=== PATIENT | male | born 1995 | race Caucasian/White ===

== ENCOUNTER 2018-01-17 15:02 | Emergency (ER) | payer BC ==
--- NOTE | 2018-01-17 15:21 | ER Report ---
History and Physical Time Seen By MD: 15:21 Hx. of Stated Complaint: PT REPORTS L ANKLE INJURY AFTER HORSE ROLLED OVER ANKLE HPI/ROS CHIEF COMPLAINT: Left ankle injury HISTORY OF PRESENT ILLNESS: 22-year-old male patient presents to emergency room with complaint of left ankle pain. Patient states he was riding a horse when the horse slipped and fell. He states he cut his left foot caught underneath horse. States that since then he's been having significant amounts of pain. He states that happened approximate 45 minutes ago. He denies any numbness tingling to the foot. He states pain seems to more on the lateral aspect. Patient denies any significant past medical history. He states he is not taking any medication for this. REVIEW OF SYSTEMS: Respiratory: No cough, no dyspnea. Cardiovascular: No chest pain, no palpitations. Gastrointestinal: No vomiting, no abdominal pain. Musculoskeletal: As noted above Allergies: Coded Allergies: No Known Drug Allergies (Unverified , 01/17/18) Home Meds Active Scripts Hydrocodone Bit/Acetaminophen (HYDROCODON-ACETAMINOPHEN 5-325) 1 Each Tablet, 1 EACH PO Q4-6H Y for PAIN, #12 TAB Prov:ERIBERTO BALL 01/17/18 Past Medical/Surgical History Patient has a past medical history of concussions, fractures. Patient denies any surgical history. Reviewed Nurses Notes: Yes Constitutional Vital Sign - Last 24 Hours 01/17/18 01/17/18 01/17/18 01/17/18 15:10 16:02 16:15 16:22 Temp 97.8 Pulse 110 79 104 Resp 16 16 B/P (MAP) 140/98 124/77 (93) Pulse Ox 96 93 O2 Delivery Room Air 01/17/18 01/17/18 01/17/18 01/17/18 16:22 16:25 16:30 16:35 Pulse 103 Resp 13 B/P (MAP) 127/64 (85) 114/52 (72) 122/75 (91) Pulse Ox 100 01/17/18 01/17/18 01/17/18 01/17/18 16:40 16:42 16:45 16:50 Pulse 96 Resp 16 B/P (MAP) 119/75 (90) 122/57 (78) 109/85 (93) Pulse Ox 98 01/17/18 01/17/18 01/17/1818 16:55 17:00 17:05 17:10 Pulse 92 Resp 16 B/P (MAP) 133/63 (86) 122/80 (94) 129/80 (96) 127/84 (98) Pulse Ox 98 01/17/18 01/17/18 01/17/18 01/17/18 17:15 17:20 17:25 17:30 Pulse 93 92 91 88 Resp 28 19 13 B/P (MAP) 100/76 (84) 109/52 (71) 130/81 (97) 130/78 (95) Pulse Ox 96 95 96 01/17/18 01/17/18 01/17/18 01/17/18 17:35 17:40 17:45 17:50 Pulse 91 92 94 96 Resp 21 14 11 17 B/P (MAP) 127/68 (87) 126/81 (96) 114/78 (90) 97/74 (82) Pulse Ox 94 96 98 95 01/17/18 01/17/18 17:55 18:00 Pulse 98 101 Resp 31 18 B/P (MAP) 109/77 (88) 134/103 (113) Pulse Ox 95 96 Intake and Output 01/17/18 01/17/18 01/18/18 15:00 23:00 07:00 Intake Total 1000 ml Balance 1000 ml Physical Exam General Appearance: The patient is alert, has no immediate need for airway protection and no current signs of toxicity. Respiratory: Chest is non tender, lungs are clear to auscultation. Cardiac: regular rate and rhythm Gastrointestinal: Abdomen is soft and non tender, no masses, bowel sounds normal. Musculoskeletal: Neck: Neck is supple and non tender. Extremities have full range of motion and are non tender. Patient has obvious deformity of the left ankle, significant amounts of swelling to the medial aspect. Patient does have tenderness to the lateral aspect. Skin: No rashes or lesions. DIFFERENTIAL DIAGNOSIS: After history and physical exam differential diagnosis was considered for fracture, sprain, dislocation. Medical Decision Making EKG/Imaging Imaging EXAMINATION: Left ankle 2 views HISTORY: Post reduction. COMPARISON: Prior study of earlier today. FINDINGS: Partially improved alignment at the left ankle following closed reduction. There is persistent lateral subluxation of the talus relative to the distal tibia, partially improved, with stable mild posterior subluxation of the talus on the lateral view. Fractures again noted of the lateral and posterior malleoli. No other new osseous findings. Surrounding soft tissue swelling, with new overlying splint material. IMPRESSION: 1. Partially improved alignment at the left ankle following closed reduction. There is persistent mild lateral and posterior displacement of the talus relative to the distal tibia. 2. Fractures of the lateral malleolus and posterior malleolus again noted. No other new osseous findings. Report Dictated By: Michael Moyer MD at 01/17/2018 5:10 PM Report E-Signed By: Michael Moyer MD at 01/17/2018 5:14 PM EXAMINATION: Left ankle radiographs 3 views Left tibia and fibula radiographs 2 views HISTORY: Fall with pain. COMPARISON: None. FINDINGS: AP, crosstable lateral and oblique views of the left ankle, and AP and crosstable lateral views of the left tibia and fibula are obtained. Bones: There is an acute oblique fracture of the distal fibula above the level of the tibiotalar joint. There is an irregular appearance of the posterior malleolus. Joint spaces: Abnormal widening of the medial ankle gutter by over 1 cm. Asymmetric narrowing of the bilateral margin the tibiotalar joint. Hardware: None. Alignment: There is 5 mm lateral displacement of the fibular fracture and mild impaction. Soft tissues: Soft tissue swelling of the distal muro and ankle. There is an ankle joint effusion. IMPRESSION: 1. Acute, oblique fracture of the left distal fibula above the level of the tibiotalar joint with 5 mm lateral displacement. 2. Probable acute fracture of the left posterior malleolus. 3. Ligamentous injury with abnormal widening of the left medial ankle gutter. Report Dictated By: Stephani Restrepo MD at 01/17/2018 4:17 PM Report E-Signed By: Stephani Restrepo MD at 01/17/2018 4:22 PM ED Course/Re-evaluation ED Course Patient was admitted to examine, history and physical obtained. Differential diagnoses were considered. Patient has obvious deformity of the left ankle on exam. It does appear to be unstable with movement. Patient is able to move his toes without any difficulties. X-rays done of the left ankle as well as the left tib-fib. Patient has obvious fracture of the distal fibula, appears to have a posterior malleolus fracture. An IV was started, a procedural sedation was done as described below. The ankle was reduced, splinted and re-x-ray. The repeat x-ray shows partially and proved alignment. I discussed the case with Dr. padilla, he did speak with the patient directly by phone. They arranged to have surgery tomorrow. I did discuss the partial improvement in alignment with Dr. Reese, he states that within doing surgery tomorrow to be fine to go ahead and leave it. I discussed this with the patient who verbalized understanding and agreement. Patient will be discharged home at this time, he'll be given a prescription for narcotic pain medication and he is to follow-up as directed by Dr. Reese. Patient verbalized understanding and agreement. Procedure: Procedural sedation. A pre-sedation evaluation was completed on the patient at what 1600. Patient is an appropriate candidate for procedural sedation. The risks of the sedation were discussed with the patient. A time out was completed. The patient was reevaluated immediately prior to initiation of sedation. The patient was sedated with 180 mg of propofol. The patient was monitored with continuous pulse oximetry and restorative art embalmer. There were no complications and no significant hypoxemia. I remained at the bedside for the sedation. The total time I spent in the procedural sedation was 15 minutes. Post sedation evaluation: Patient was alert and cooperative, hemodynamically stable with appropriate respiratory status, temperature and pain control without ongoing nausea and vomiting. Procedure: Splint placement. A posterior and stirrup splint was applied. After application of the splint I re-examined the patient. The splint was adequately immobilizing the joint and distal to the splint the patient's circulation and sensation was intact. Splint placement was done by myself Decision to Disposition Date: Jan 17, 2018 Decision to Disposition Time: 17:50 Depart Departure Latest Vital Signs Vital Signs Date Time Temp Pulse Resp B/P (MAP) Pulse Ox O2 Delivery O2 Flow Rate FiO2 01/17/18 18:00 101 18 134/103 (113) 96 01/17/18 15:10 97.8 Room Air Impression: Primary Impression: Bimalleolar ankle fracture Condition: Improved Disposition: HOME OR SELF-CARE New Scripts Hydrocodone Bit/Acetaminophen (HYDROCODON-ACETAMINOPHEN 5-325) 1 Each Tablet 1 EACH PO Q4-6H Y for PAIN, #12 TAB Prov: ERIBERTO BALL 01/17/18 Patient Instructions: Ankle Fracture (ED) Additional Instructions: Limit activity by pain. Ice the ankle through the splint; 2-3 times a day for 20-30 minutes. If the splint is feeling too tight you may loosen the joy wrap and rewrap it. Follow up with [facility], as directed. Keep the splint dry, wrap it with a bag and tape to keep the water out. Return to the ER with uncontrollable pain or numbness to the foot. You may take Ibuprofen as needed for pain in addition to the pain medication. Don't take any additional Tylenol while on the pain medication. Problem Qualifiers Primary Impression: Bimalleolar ankle fracture Encounter type: initial encounter Fracture type: closed Laterality: left Qualified Codes: S82.842A - Displaced bimalleolar fracture of left lower leg, initial encounter for closed fracture ERIBERTO BALL Jan 17, 2018 15:21
[2018-01-17] MEDS ORDERED: MORPHINE 4 MG/ML SDV IVP ONE (15:30)
[2018-01-17] MEDS ORDERED: NS(*) 0.9% 1000 ML BAG 1,000 ML IV ONE (15:30)
[2018-01-17] MEDS ORDERED: PROPOFOL EMUL 10MG/ML 20 ML VL IV ONE (16:00)
--- NOTE | 2018-01-17 16:27 | RADIOLOGY IMAGING REPORT ---
FACILITY: [facility] [place] PATIENT NAME: Adam Page : 1995 MR: [id number] V: [id number] EXAM DATE: ORDERING PHYSICIAN: ERIBERTO BALL TECHNOLOGIST: [place] [facility] [place] Adam Page : 1995 Visit/Account:[id number] Date of Sevice: 01/17/2018 EXAMINATION: Left ankle radiographs 3 views Left tibia and fibula radiographs 2 views HISTORY: Fall with pain. COMPARISON: None. FINDINGS: AP, crosstable lateral and oblique views of the left ankle, and AP and crosstable lateral v iews of the left tibia and fibula are obtained. Bones: There is an acute oblique fracture of the distal fibula above the level of the tibiotalar sydni nt. There is an irregular appearance of the posterior malleolus. Joint spaces: Abnormal widening of the medial ankle gutter by over 1 cm. Asymmetric narrowing of the bilateral margin the tibiotalar joint. Hardware: None. Alignment: There is 5 mm lateral displacement of the fibular fracture and mild impaction. Soft tissues: Soft tissue swelling of the distal muro and ankle. There is an ankle joint effusion. IMPRESSION: 1. Acute, oblique fracture of the left distal fibula above the level of the tibiotalar joint with 5 m m lateral displacement. 2. Probable acute fracture of the left posterior malleolus. 3. Ligamentous injury with abnormal widening of the left medial ankle gutter. Report Dictated By: Stephani Restrepo MD at 01/17/2018 4:17 PM Report E-Signed By: Stephani Restrepo MD at 01/17/2018 4:22 PM WSN:[id number]
--- NOTE | 2018-01-17 16:27 | RADIOLOGY IMAGING REPORT ---
FACILITY: [facility] PATIENT NAME: Adam Page : 1995 MR: [id number] V: [id number] EXAM DATE: ORDERING PHYSICIAN: ERIBERTO BALL TECHNOLOGIST: Location: [facility] Patient: Adam Page : 1995 Visit/Account:[id number] Date of Sevice: 01/17/2018 EXAMINATION: Left ankle radiographs 3 views Left tibia and fibula radiographs 2 views HISTORY: Fall with pain. COMPARISON: None. FINDINGS: AP, crosstable lateral and oblique views of the left ankle, and AP and crosstable lateral v iews of the left tibia and fibula are obtained. Bones: There is an acute oblique fracture of the distal fibula above the level of the tibiotalar sydni nt. There is an irregular appearance of the posterior malleolus. Joint spaces: Abnormal widening of the medial ankle gutter by over 1 cm. Asymmetric narrowing of the bilateral margin the tibiotalar joint. Hardware: None. Alignment: There is 5 mm lateral displacement of the fibular fracture and mild impaction. Soft tissues: Soft tissue swelling of the distal muro and ankle. There is an ankle joint effusion. IMPRESSION: 1. Acute, oblique fracture of the left distal fibula above the level of the tibiotalar joint with 5 m m lateral displacement. 2. Probable acute fracture of the left posterior malleolus. 3. Ligamentous injury with abnormal widening of the left medial ankle gutter. Report Dictated By: Stephani Restrepo MD at 01/17/2018 4:17 PM Report E-Signed By: Stephani Restrepo MD at 01/17/2018 4:22 PM WSN:[id number]
--- NOTE | 2018-01-17 17:17 | RADIOLOGY IMAGING REPORT ---
FACILITY: [facility] PATIENT NAME: Adam Page : 1995 MR: [id number] V: [id number] EXAM DATE: ORDERING PHYSICIAN: ERIBERTO BALL TECHNOLOGIST: Location: [facility] Patient: Adam Page : 1995 Visit/Account:[id number] Date of Sevice: 01/17/2018 EXAMINATION: Left ankle 2 views HISTORY: Post reduction. COMPARISON: Prior study of earlier today. FINDINGS: Partially improved alignment at the left ankle following closed reduction. There is persistent latera l subluxation of the talus relative to the distal tibia, partially improved, with stable mild posteri or subluxation of the talus on the lateral view. Fractures again noted of the lateral and posterior malleoli. No other new osseous findings. Surrounding soft tissue swelling, with new overlying splint material. IMPRESSION: 1. Partially improved alignment at the left ankle following closed reduction. There is persistent mil d lateral and posterior displacement of the talus relative to the distal tibia. 2. Fractures of the lateral malleolus and posterior malleolus again noted. No other new osseous findi ngs. Report Dictated By: Michael Moyer MD at 01/17/2018 5:10 PM Report E-Signed By: Michael Moyer MD at 01/17/2018 5:14 PM WSN:[id number]
[2018-01-17] MEDS ORDERED: HYDR-385 PO (17:51)
[2018-01-17] MEDS ORDERED: APAP/HYDROCODONE 325/5 TAB PO ONE (17:55)
[2018-01-17 18:00] VITALS: BP 134/103
== END 2018-01-17 18:00 | disposition home or self-care (01) ==
LOC: ER 15:16
DX: S82.842A Displaced bimalleolar fracture of left lower leg, initial encounter for closed fracture (principal)
CPT/HCPCS: 27810; 73590; 73600; 73610; 96361; 96374; 99152; 99284; J2270; J2704; J7030